=== PATIENT | male | born 2000 | race Caucasian/White ===

== ENCOUNTER 2020-01-28 08:33 | Emergency (ER) | payer MEDICAID ==
[~2020-01-28] VITALS: Ht 180.3 cm; Wt 72.7 kg
[2020-01-28] MEDS ORDERED: LIDOcaine 1% W/epiNEPHrine 1:200,000 10ml vial IJ ONE (10:10)
[2020-01-28] MEDS ORDERED: TETanus/Pertussis (Acell)/Diphther VAC/PF (Tdap-Adult) 0.5ml syringe IMVAC ONE (10:10)
[2020-01-28 11:06] VITALS: BP 118/71
== END 2020-01-28 11:07 | disposition home or self-care (01) ==
LOC: ER 08:33
DX: S01.01XA Laceration without foreign body of scalp, initial encounter (principal); W22.8XXA Striking against or struck by other objects, initial encounter; Y93.89 Activity, other specified; Y92.89 Other specified places as the place of occurrence of the external cause; Y99.8 Other external cause status
CPT/HCPCS: 12001; 90471; 90715; 99283

== ENCOUNTER 2025-05-21 18:12 | Emergency (ER) | payer BC, MEDICAID ==
[~2025-05-21] VITALS: Ht 180.3 cm; Wt 72.6 kg
--- NOTE | 2025-05-21 18:42 | Physician Documentation ---
History of Present Illness ~ Chief Complaint: Flu Symptoms Stated Complaint: FLU SYMPTOMS Time Seen by MD: 19:12 OK to notify your PCP?: Yes Primary Medical Doctor: Dr. Weiner Source: patient Mode of Arrival: POV Exam Limitations: no limitations HPI Reports having cough and congestion with green phlegm since Sunday. 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 He reports that last night he was starting to feel fatigued as well as having hot and cold chills. He looked in the back of his throat and reports seeing some white patches in his worried about strep. Medication Reconciliation Allergies: Coded Allergies: No Known Allergies (Unverified , 01/28/20) Past Medical History Past Medical History: No Pertinent History Past Surgical History: no surgical history Alcohol Use: None Drug Use: none Lives In: Home Occupation: employed Review of Systems All Other Systems at this time: Reviewed and Negative Physical Exam Vital Signs: RN Vital Signs have been reviewed: Yes, Temperature: 100.4, Source: Oral, Heart Rate: 83, Respiratory Rate: 16, BP: 125/58, Pulse Oximetry: 98, Weight: 72.600 Oxygen Flow Rate: 0 Pulse Oximetry Reflects: adequate oxygenation Physical Exam General: Alert, no distress. HEENT: No injection, moist mucous membranes. Posterior pharynx erythema Neck: Full range of motion. Respiratory: No respiratory distress, equal chest rise and fall. Chest: No accessory muscle use. Cardiovascular: Regular rate and rhythm. Gastrointestinal: Nondistended. Extremities: Normal range of motion, no deformity. Neurologic: Oriented x4. Psychiatric: Normal mood and affect. Skin: Normal color, warm and dry. Progress Results/Orders Results/Orders Vital Signs 05/21/25 18:35 Temp 100.4 Pulse 83 Resp 16 B/P (MAP) 125/58 Pulse Ox 98 O2 Flow Rate 0 Laboratory Tests Test 05/21/25 18:41 Group A Streptococcus Rapid Negative Medical Decision Making Additional information obtaine: old records Findings Presents with clinical signs for a typical URI with viral pharyngitis. He does not have strep has a has a clinical indications. As he has no signs of exudate has not an accompanying cough. Differential Dx:Considerations: Include: CVA, Dehydration, Drug toxicity, Electrolyte imbalance, Influenza, Meningitis, Mycardial infarction, Pneumonia, Pneumonitis, Pulmonary embolus, Pyelonephritis, Respiratory failure, Sepsis, UTI, Viral Syndrome, Other Departure Disposition: 01 HOME / SELF CARE / HOMELESS Impression: Primary Impression: Viral infection Discharge Instructions: Viral Illness Additional Instructions: Stay home increase fluid intake and rest. Manage her symptoms with ibuprofen and Tylenol Departure Forms: Excuse form Work or School Excused From: Work Excuse beginning now through the following date: May 24, 2025 May Return but still avoid physical Activity from now until: May 24, 2025 May Return to full physical activity as of: May 24, 2025 Referrals: NO PRIMARY CARE PROVIDER (PCP) Education Educated: Patient Educated regarding: diagnosis Additional Comment Medical Screen Exam This patient recieved a medical screening examination. After reviewing the i ndividual's medical complaints with presenting symptoms and performing an appropriate physical examination, it was determined that no immediate life- threatening emergency medical condition is present. This individual is also not a women having contractions. Signature Scribe Signature: t Attestation: Scribed for French Barrett Photoengraving Etcher by French Cintron NP . 05/21/25 19:18 GERRI BENSON May 21, 2025 18:42 FRENCH BARRETT NP May 21, 2025 19:18
[2025-05-21 19:06] LABS: STREP A SCREEN NEGATIVE (Neg)
[2025-05-21 19:26] VITALS: BP 123/55; PULSE 80; RESP 20; TEMP 98.9; O2SAT 99
== END 2025-05-21 19:27 | disposition home or self-care (01) ==
LOC: ER 18:13
DX: B34.9 Viral infection, unspecified (principal)
CPT/HCPCS: 87081; 87880; 99283